=== PATIENT | female | born 1955 | race Caucasian/White ===

== ENCOUNTER 2017-11-16 07:36 | Observation (INO) | payer OTHER, MEDICARE ==
[2017-11-12 15:30] LABS: BASOPHILS # (AUTO) 0.1 (0.0-0.1); BASOPHILS % 0.5 % (0.0-1.0); EOSINOPHILS # (AUTO) 0.2 (0.0-0.4); EOSINOPHILS % 1.8 % (0.0-6.0); HEMOGLOBIN 13.3 g/dL (12.0-16.0); LYMPHOCYTES # (AUTO) 3.2 (1.0-3.2); LYMPHOCYTES % 34.3 % (18.0-39.1); MEAN CORPUSCULAR HEMOGLOBIN 26.2 pg (28-32); MEAN CORPUSCULAR HGB CONC 32.4 g/dL (31-35); MEAN CORPUSCULAR VOLUME 80.9 fL (81-99); MONOCYTES # (AUTO) 0.5 (0.2-0.8); MONOCYTES % 5.4 % (4.4-11.3); NEUTROPHILS # (AUTO) 5.4 (2.1-6.9); NEUTROPHILS % 57.6 % (38.7-80.0); PLATELET COUNT 283 x10e3/uL (140-360); RED BLOOD COUNT 5.07 x10e6/uL (3.6-5.1); RED CELL DISTRIBUTION WIDTH 14.7 % (11.7-14.4)
[2017-11-12 15:49] LABS: ALANINE AMINOTRANSFERASE 24 IU/L (0-55); ALBUMIN 4.2 g/dL (3.5-5.0); ALBUMIN/GLOBULIN RATIO 1.1 (0.8-2.0); ALKALINE PHOSPHATASE 85 IU/L (40-150); ANION GAP 13.9 mmol/L (8-16); BLOOD UREA NITROGEN 7 mg/dL (7-26); BUN/CREATININE RATIO 9 (6-25); CALCIUM 10.2 mg/dL (8.4-10.2); CARBON DIOXIDE 25 mmol/L (22-29); CHLORIDE 105 mmol/L (98-107); CREATININE, SERUM 0.82 mg/dL (0.57-1.11); EST GLOMERULAR FILTRATION RATE > 60 ML/MIN (60-); GLUCOSE 78 mg/dL (74-118); POTASSIUM 3.9 mmol/L (3.5-5.1); SODIUM 140 mmol/L (136-145)
[~2017-11-16] VITALS: Ht 149.9 cm; Wt 71.7 kg
[~2017-11-16 07:36] MED LIST: ATORVASTATIN CA20 MG PO; BUSPIRONE HCL5 MG PO; CEFAZOLIN SOD 2 GM/D5W 50ML 50 ML IV ONE; GLIMEPIRIDE2 MG PO; HYDROXYZINE HCL25 MG PO; LISINOPRIL20 MG PO; METFORMIN HCL1000 MG PO; MIRTAZAPINE15 MG PO; PRILOSEC OTC20 MG PO
[2017-11-16] MEDS ORDERED: ESTROGENS CONJUGATED VAGINAL CR 45 GM TUBE PV ONE (07:41)
[2017-11-16] MEDS ORDERED: BUPIVACAINE 0.25% 30ML SDV INJ ONE (07:42)
[2017-11-16] MEDS ORDERED: PROMETHAZINE HCL (IM) 25 MG/ML VIAL IV PRN (10:45)
[2017-11-16] MEDS ORDERED: DIPHENHYDRAMINE HCL 25 MG CAP PO PRN (10:45)
[2017-11-16] MEDS ORDERED: DEXTROSE 50% SYRINGE 50 ML IV PRN (10:45)
[2017-11-16] MEDS ORDERED: BISACODYL 10 MG SUPP PR PRN (10:45)
[2017-11-16] MEDS ORDERED: MEPERIDINE HCL INJ 25 MG/ML VIAL IV PRN (10:45)
[2017-11-16] MEDS: INSULIN REGULAR, HUMAN 100 UNIT/1 ML 3ML VIAL SQ SCH ×3 (11:30→21:16)
[2017-11-16] MEDS ORDERED: FENTANYL CITRATE/PF 100MCG/2 ML INJ ONE ×2 (12:09→17:43)
[2017-11-16 13:58] VITALS: BP 146/71
[2017-11-16 14:07] VITALS: BP 146/71
[2017-11-16 14:17] VITALS: BP 146/71
[2017-11-16] MEDS: LACTATED RINGER'S 1,000 ML IV SCH ×3 (15:42→21:52)
[2017-11-16] MEDS: KETOROLAC TROMETHAMINE 30 MG/ML VIAL IM PRN (15:43)
[2017-11-16] MEDS: HYDROXYZINE HCL 25 MG TAB PO SCH (16:22)
[2017-11-16] MEDS: BUSPIRONE HCL 5 MG TAB PO SCH (16:22)
[2017-11-16] MEDS: METFORMIN HCL 500 MG TAB PO SCH (16:23)
[2017-11-16 16:28] LABS: BASOPHILS % 0.2 % (0.0-1.0); EOSINOPHILS % 0.1 % (0.0-6.0); HEMATOCRIT 35.1 % (34.2-44.1); HEMOGLOBIN 11.3 g/dL (12.0-16.0); LYMPHOCYTES # (AUTO) 1.3 (1.0-3.2); LYMPHOCYTES % 10.1 % (18.0-39.1); MEAN CORPUSCULAR HEMOGLOBIN 26.2 pg (28-32); MEAN CORPUSCULAR HGB CONC 32.2 g/dL (31-35); MEAN CORPUSCULAR VOLUME 81.3 fL (81-99); MONOCYTES # (AUTO) 0.2 (0.2-0.8); MONOCYTES % 1.2 % (4.4-11.3); NEUTROPHILS # (AUTO) 11.3 (2.1-6.9); NEUTROPHILS % 88.1 % (38.7-80.0); PLATELET COUNT 222 x10e3/uL (140-360); RED BLOOD COUNT 4.32 x10e6/uL (3.6-5.1); RED CELL DISTRIBUTION WIDTH 14.4 % (11.7-14.4)
[2017-11-16 16:52] VITALS: BP 129/70
[2017-11-16] MEDS ORDERED: NON-FORMULARY MEDICATION (Metformin Hcl 1,000 MG) PO SCH (17:00)
[2017-11-16] MEDS ORDERED: ONDANSETRON HCL INJ 2 MG/ML VIAL ONE (17:31)
[2017-11-16] MEDS ORDERED: GLYCOPYRROLATE INJ 1MG/ 5 ML SYR ONE (17:31)
[2017-11-16] MEDS ORDERED: KETOROLAC TROMETHAMINE 30 MG/ML VIAL ONE (17:31)
[2017-11-16] MEDS ORDERED: LABETALOL HCL IV 5 MG/ML 20ML MDV ONE (17:31)
[2017-11-16] MEDS ORDERED: ALBUTEROL SULFATE HFA 8GM INHALATION AEROSOL INH ONE (17:31)
[2017-11-16] MEDS ORDERED: ACETAMINOPHEN 1000 MG/100 ML IV ONE (17:31)
[2017-11-16] MEDS ORDERED: PROPOFOL IV EMULSION 10 MG/ML 20 ML VIAL ONE (17:31)
[2017-11-16] MEDS ORDERED: SEVOFLURANE INHAL SOLN 250 ML PEN BTL ONE (17:31)
[2017-11-16] MEDS ORDERED: NEOSTIGMINE 5 MG/5ML SYR ONE (17:31)
[2017-11-16] MEDS ORDERED: ROCURONIUM BROMIDE 10 MG/ML 5ML VIAL ONE (17:31)
[2017-11-16] MEDS ORDERED: LIDOCAINE HCL 2% LOCAL INJ 5 ML SDV VIAL INJ ONE (17:31)
[2017-11-16 20:00] VITALS: BP 129/78
[2017-11-16] MEDS ORDERED: MIRTAZAPINE 15 MG TAB PO SCH (21:00)
[2017-11-16] MEDS ORDERED: ATORVASTATIN 20 MG TAB PO SCH (21:00)
[2017-11-16] MEDS: PANTOPRAZOLE SOD 40 MG TABEC PO SCH (21:52)
[2017-11-17] VITALS: BP 122/57
[2017-11-17 04:00] VITALS: BP 114/60
[2017-11-17 07:48] VITALS: BP 109/61
[2017-11-17] MEDS ORDERED: GLIMEPIRIDE 2 MG TAB PO SCH (08:00)
[2017-11-17 08:10] VITALS: BP 109/61
[2017-11-17] MEDS: INSULIN REGULAR, HUMAN 100 UNIT/1 ML 3ML VIAL SQ SCH (08:42)
[2017-11-17] MEDS: METFORMIN HCL 500 MG TAB PO SCH (08:55)
[2017-11-17] MEDS: PANTOPRAZOLE SOD 40 MG TABEC PO SCH (08:55)
[2017-11-17] MEDS: HYDROXYZINE HCL 25 MG TAB PO SCH (08:56)
[2017-11-17] MEDS: BUSPIRONE HCL 5 MG TAB PO SCH (08:56)
[2017-11-17] MEDS ORDERED: NON-FORMULARY MEDICATION (Omeprazole Magnesium (Prilosec Otc) 20 MG) PO SCH (09:00)
[2017-11-17] MEDS ORDERED: LISINOPRIL 20 MG TAB PO SCH (09:00)
[2017-11-17] MEDS: KETOROLAC TROMETHAMINE 30 MG/ML VIAL IM PRN (09:32)
[2017-11-17] MEDS: LACTATED RINGER'S 1,000 ML IV SCH (10:39)
[2017-11-17 11:39] VITALS: BP 130/64
--- NOTE | 2017-11-17 16:57 | Operative Report ---
DATE OF PROCEDURE: November 16, 2017 PREOPERATIVE DIAGNOSES 1. Atypical, complex endometrial hyperplasia. 2. Postmenopausal bleeding. POSTOPERATIVE DIAGNOSES 1. Atypical, complex endometrial hyperplasia. 2. Postmenopausal bleeding. PROCEDURE: Vaginal hysterectomy. CANE LOADER: RAMIN Long COMPLICATIONS: None. ESTIMATED BLOOD LOSS: 50 mL. DESCRIPTION OF PROCEDURE: The patient was taken to the OR. Under general anesthesia, she was prepped and draped in the normal sterile fashion. She was placed in the dorsal lithotomy position. After examination under anesthesia, a weighted speculum was placed inside the vagina. The cervix was grasped with a single-tooth tenaculum. Marcaine 0.25%, 20 mL, was injected around the cervix subvaginally. Following this, a circumferential vaginal skin incision was made at the level of the bladder line. The bladder was dissected off the cervix using curved Masters scissors and gentle sweeps of Ray-Noemí wrapped on the index finger. The pouch of Ceferino was opened with Metzenbaum scissors, and the weighted speculum was advanced into the pouch of Ceferino. Following this, curved Zeppelin clamps were applied. The uterosacral ligaments were cut and the pedicles secured with transfixion sutures of Vicryl 0. LigaSure was used and the bilateral uterine vessels were occluded and cut. The pedicles were cut and secured. Another bite was made with the LigaSure cephalad medial to the uterine vessel pedicles on each side of the uterus. Following this, the uterine fundus was brought outside the wound with a finger around the anterior wall of the uterus. The anterior pouch was opened and a curved Zeppelin clamp was applied on each side of the uterus. The uterus was freed and sent to pathology. Pedicles were secured with a transfixion suture of Vicryl 0. Following this, the vagina was closed with interlocking stitches of Vicryl 0. A Curry catheter was placed, and it revealed clear urine. Vaginal pack was inserted. The patient tolerated the procedure well. Lap and instrument counts were correct times 2 at the end of the procedure. Job#: [id number]
== END 2017-11-17 13:05 | disposition home or self-care (01) ==
LOC: OR 07:36 → IMCU 12:45
PROVIDERS: ADMIT Obstetrics & Gynecology; ATTEND Obstetrics & Gynecology
DX: N85.01 Benign endometrial hyperplasia (principal); N95.0 Postmenopausal bleeding
CPT/HCPCS: 36415; 71020; 80053; 82948; 85025; 88307; 93005; G0378; J1885; J2001; J2175; J2405; J3410; J7120